=== PATIENT | female | born 1955 | race Caucasian/White ===

== ENCOUNTER 2020-11-25 07:02 | Outpatient (REF) | payer MEDICARE, SELFPAY | END 2020-11-25 07:03 | disposition home or self-care (01) | LOC: HO.WFDLDS 07:02 | PROVIDERS: PCP Pediatrics; Visit Provider Internal Medicine | DX: Z20.822 Contact with and (suspected) exposure to COVID-19 (principal) | CPT/HCPCS: 36415; C9803; U0003 ==